=== PATIENT | female | born 1985 | race Caucasian/White ===

== ENCOUNTER 2017-03-03 15:57 | Emergency (ER) | payer OTHER ==
[2017-03-03 16:04] VITALS: BP 120/82
[2017-03-03] MEDS ORDERED: KETOROLAC TROMETHAMINE 60 MG/2 ML VIAL IM ONE ×2 (16:11→16:14)
[2017-03-03] MEDS ORDERED: CLINDAMYCIN PHOSPHATE 150 MG/ML VIAL IM ONE (16:11)
[2017-03-03] MEDS ORDERED: LIDOCAINE HCL 20 ML UDC MM ONE (16:11)
--- NOTE | 2017-03-03 16:20 | ERNOTE ---
ENT HPI Date of Service: 03/03/17 Time Seen by Provider: 03/03/17 16:05 Source: patient Exam Limitations: no limitations - Immun/Allergies/Home Medications Immunizations: IMMUNIZATION HX Immunizations Up to Date Yes History of Influenza Vaccine Yes Hx Pneumococcal Vaccination No Allergies/Adverse Reactions: Allergies Allergy/AdvReac Type Severity Reaction Status Date / Time No Known Allergies Allergy Verified 12/08/14 12:37 Home Medications: HOME MEDICATIONS Clindamycin HCl [Cleocin HCl] 300 mg PO Q6H #40 capsule 03/03/17 [Last Taken Unknown] Lidocaine HCl [Lidocaine HCl Viscous 2%] 5 ml MM Q3H PRN #200 ml 03/03/17 [Last Taken Unknown] Naproxen [Naprosyn] 500 mg PO BID PRN #60 tab 03/03/17 [Last Taken Unknown] - History of Present Illness Narrative: Pt. comes in with c/o L mandibular pain for two days. Pt. denies any fevers, SOB, NVD, recent illness, alleviating factors, aggravating factors, or prehospital treatment. Review of Systems - Review of Systems Constitutional: Present: no symptoms reported. Absent: recent illness, fever, chills, weakness, fatigue, malaise EYE: Present: no symptoms reported ENT: Present: no symptoms reported - mandibular dental pain, other Respiratory: Present: no symptoms reported. Absent: shortness of breath, cough , wheezing Cardiology: Present: no symptoms reported. Absent: chest pain, palpitations, edema Gastrointestinal/Abdominal: Present: no symptoms reported. Absent: nausea, vomiting, diarrhea, abdominal pain Genitourinary: Present: no symptoms reported Musculoskeletal: Present: no symptoms reported. Absent: back pain, joint pain Skin: Present: no symptoms reported Neurological: Present: no symptoms reported. Absent: headache, dizziness/light- headedness, numbness, tingling All Other Systems: All systems neg except as marked - Patient's Past Medical History Patient History - Medical: No pertinent hx Patient History - Cardiac/Respiratory: No pertinent hx Patient History - Cancer: No Hx of Cancer Patient History - Surgical Procedures: Patient History - Other: None LMP (females 10-50): now - Social History Living Situations: home Abuse History: No History of abuse Psych History: No pertinent hx Smoking Status: Current every day smoker Have you smoked in the past 12 months: Yes Do you dip or chew tobacco: No Alcohol Use: rarely Drug Use: none - Immunizations Immunizations Up to Date: Yes Hx Pneumococcal Vaccination: No History of Influenza Vaccine: Yes Physical Exam - Physical Exam General Appearance: Present: wd/wn, alert, no apparent distress Head Exam: Present: normal inspection, no evidence of injury Eye Exam: Normal inspection: bilateral, PERRL: bilateral, EOMI: bilateral Ears, Nose, Throat: Present: other - L mandibular molar dental caries with abscess noted below tooth Neck: Present: normal inspection, nontender. Absent: lymphadenopathy (R), lymphadenopathy (L) Respiratory: Present: no respiratory distress, normal breath sounds, no accessory muscle use, chest nontender, lungs clear Cardiovascular/Chest: Present: regular rate, rhythm, no murmur, normal peripheral pulses Back Exam: Present: normal inspection Extremity Exam: Present: normal inspection Neurological Exam: Present: alert, oriented, normal mood/affect, no motor/ sensory deficits, allopathic doctor II-XII nml as tested, normal cerebellar test Skin Exam: Present: normal color, warm/dry. Absent: pallor, skin rash ED Progress - Vital Signs Patient's Vital Signs:: I have reviewed the patient's vital signs. Vital Signs: Vital Signs 03/03/17 15:59 Temperature 37.0 C Pulse Rate 75 Respiratory 14 Rate Blood Pressure 120/82 O2 Sat by Pulse 100 Oximetry - Progress/Reassessment Chief Complaint: Dental Problem Progress:: Improved Departure Clinical Impression: Dental abscess - Departure Disposition: Home self-care Condition: Good Instructions: Dental Abscess, [id number] Additional Instructions: Please follow up with [facility] as soon as possible. Referrals: Fei Loyola MD [Primary Care Provider] - Prescriptions: Clindamycin HCl [Cleocin HCl] 300 mg PO Q6H #40 capsule Lidocaine HCl [Lidocaine HCl Viscous 2%] 5 ml MM Q3H PRN #200 ml PRN Reason: mouth pain Naproxen [Naprosyn] 500 mg PO BID PRN #60 tab PRN Reason: Pain
== END 2017-03-03 16:30 | disposition home or self-care (01) ==
LOC: ER 15:57
DX: K04.7 Periapical abscess without sinus (principal); F17.200 Nicotine dependence, unspecified, uncomplicated